=== PATIENT | male | born 1985 | race Caucasian/White ===

== ENCOUNTER 2016-11-25 18:00 | Emergency (ER) | payer OTHER ==
--- NOTE | 2016-11-25 18:24 | UC ---
Skin Complaint HPI - HPI Summary HPI Summary: bite by a bug on back of right calf ---was in and out of the water----wound has been getting bigger leg is swollen had some Augmentin so he has taken that for three days - History of Current Complaint Chief Complaint: UCSkin Time Seen by Provider: 11/25/16 18:07 Stated Complaint: SKIN CONCERN Hx Obtained From: Patient Onset/Duration: Gradual Onset, Still Present, Worse Since - past 3 days Timing: Constant Onset Severity: Mild Current Severity: Moderate Location: Discrete - back of right calf Character: Raised Aggravating: Nothing Alleviating: Nothing Related History: Insect Bite/Sting - Allergy/Home Medications Allergies/Adverse Reactions: Allergies Allergy/AdvReac Type Severity Reaction Status Date / Time No Known Allergies Allergy Verified 11/25/16 18:12 Home Medications: Home Medications Amoxicillin/Clavulanate TAB* [Augmentin TAB 875*] 875 mg PO BID 11/25/16 [ History Confirmed 11/25/16] Review of Systems Constitutional: Negative Skin: Negative, Other - 15 cm erythema 5 cm induration 1 cm open with eschar Eyes: Negative ENT: Negative Respiratory: Negative Cardiovascular: Negative Gastrointestinal: Negative Genitourinary: Negative Motor: Negative Neurovascular: Negative Musculoskeletal: Negative Neurological: Negative Psychological: Negative All Other Systems Reviewed And Are Negative: Yes PMH/Surg Hx/FS Hx/Imm Hx Previously Healthy: Yes - Surgical History Surgical History: Yes Surgery Procedure, Year, and Place: tonsils as child - Family History Known Family History: Positive: None Family History: no family history of cardiovascular disorders - Social History Occupation: Employed Full-time Lives: With Family Alcohol Use: Rare Substance Use Type: None Smoking Status (MU): Former Smoker Type: Cigarettes Amount Used/How Often: 4-5 CIGS PER DAY Length of Time of Smoking/Using Tobacco: 10 YRS Have You Smoked in the Last Year: Yes When Did the Patient Quit Smoking/Using Tobacco: 11/26/14 Physical Exam Triage Information Reviewed: Yes Appearance: Well-Appearing, No Pain Distress, Well-Nourished Vital Signs: Initial Vital Signs Temp 99.8 F 11/25/16 18:13 Pulse 84 11/25/16 18:13 Resp 16 11/25/16 18:13 BP 158/93 11/25/16 18:13 Pulse Ox 100 11/25/16 18:13 Vital Signs Reviewed: Yes Eye Exam: Normal Eyes: Positive: Conjunctiva Clear ENT Exam: Normal ENT: Positive: Normal ENT inspection, Hearing grossly normal. Negative: Nasal congestion, Nasal drainage, Trismus, Muffled/hoarse voice Dental Exam: Normal Neck exam: Normal Neck: Positive: Supple, Nontender Respiratory Exam: Normal Respiratory: Positive: Chest non-tender, Lungs clear, Normal breath sounds, No respiratory distress, No accessory muscle use Cardiovascular Exam: Normal Cardiovascular: Positive: RRR, No Murmur, Pulses Normal, Brisk Capillary Refill Musculoskeletal Exam: Normal Musculoskeletal: Positive: Strength Intact, Edema @ - right calf Neurological Exam: Normal Neurological: Positive: Alert, Muscle Tone Normal Psychological Exam: Normal Psychological: Positive: Normal Response To Family, Age Appropriate Behavior Skin Exam: Other Skin: Positive: Other - 15 cm erythema 5 cm induration 1 cm open with eschar Course/Dx - Course Course Of Treatment: dressing, d/c and folow immediatly in emergency department - Differential Diagnoses - Skin Complaint Differential Diagnoses: Abscess, Cellulitis, Local Allergic Reaction, MRSA - Diagnoses Provider Diagnoses: wound infection failed outpatient treatment Discharge - Discharge Plan Condition: Stable Disposition: HOME Patient Education Materials: Wound Infection (ED) Referrals: Non Staff,Doctor [Medical Doctor] - Additional Instructions: We are discharging you from the urgent care and requesting you go directly to the emergency department for further care
[2016-11-25 18:37] VITALS: BP 158/93
== END 2016-11-25 18:34 | disposition home or self-care (01) ==
LOC: UCCORT 18:00
DX: L08.9 Local infection of the skin and subcutaneous tissue, unspecified (principal); Z87.891 Personal history of nicotine dependence
CPT/HCPCS: 99211; G0463